=== PATIENT | male | born 1970 | race Two or more races ===

== ENCOUNTER 2025-01-31 13:30 | Emergency (ER) | payer MEDICAID, OTHER ==
[~2025-01-31] VITALS: Ht 172.7 cm; Wt 82.0 kg
--- NOTE | 2025-01-31 14:15 | ED.PDOC ---
Musculoskeletal HPI Comments 54-year-old male with a history of right knee torn meniscus brought in by EMS complaining of right knee pain status post fall. Patient states he was walking when his foot became stuck in a crack in the pavement, causing him to fall and injure his right knee. He states the pain was so severe initially, it made him dizzy, so he continuing to lie on the pavement. On arrival to the ED, he states he is able to weight bear and the pain has improved. He no longer feels dizzy. He denies any other injuries. Chief Complaint: Lower Extremity Time Seen by MD: 13:59 Reviewed Notes: Medications, Allergies Allergies: Coded Allergies: NO KNOWN ALLERGIES (Unverified , 01/31/25) Home Meds Active Scripts Ibuprofen Micronized (Ibuprofen) 600 Mg Tab, 600 MG PO Q6HP PRN, #30 TAB Prn pain. Take with food. Prov:OJ LAM MD 01/31/25 Elastic Bandages & Supports (Jossue Knee Stabilizer) Stabilzr Mis, UNIT XX DAILY, #1 Prov:OJ LAM MD 01/31/25 Information Source: Patient Mode of Arrival: EMS Location: Right Extremity Location: Knee, Leg Timing: Hours Prehospital treatment: None Severity: Moderate Able to Move Extremity: Yes Bear Weight: Limited Pain: Moderate Hand Dominance: Right Mechanism: Twisting Circumstances: Accident Onset of Symptoms: After Trauma Symptoms: Pain DVT Risk Factors: NONE Last Tetanus: UTD Past Medical History Past Medical History (Other): Right knee meniscal injury Surgical History: Denies all surgeries Family History Family History: Reviewed,noncontributory to illness Social History Smoker: Cigarettes Alcohol: Denies ETOH Use Drugs: Denies Drug Use Lives In: Home Constitutional: denies: chills, diaphoresis, fatigue, fever, malaise, sweats, weakness, others EENTM: denies: blurred vision, double vision, ear bleeding, ear discharge, ear drainage, ear pain, ear ringing, eye pain, eye redness, hearing loss, mouth guillermina n, mouth swelling, nasal discharge, nose bleeding, nose congestion, nose pain, photophobia, tearing, throat pain, throat swelling, voice changes, others Respiratory: denies: cough, hemoptysis, orthopnea, SOB at rest, shortness of breath, SOB with excertion, stridor, wheezing, others Cardiovascular: denies: chest pain, dizzy spells, diaphoresis, Dyspnea on exertion, edema, irregular heart beat, left arm pain, lightheadedness, palpitations, PND, syncope, others Gastrointestinal: denies: abdomen distended, abdominal pain, blood streaked bowels, constipated, diarrhea, dysphagia, difficulty swallowing, hematemesis, melena, nausea, poor appetite, poor fluid intake, rectal bleeding, rectal pain, vomiting, others Genitourinary: denies: burning, dysuria, flank pain, frequency, hematuria, incontinence, penile discharge, penile sore, pain, testicle pain, testicle swelling, urgency, others Neurological: denies: dizziness, fainting, headache, left sided numbness, left sided weakness, numbness, paresthesia, pre-existing deficit, right sided numbness, right sided weakness, seizure, speech problems, tingling, tremors, weakness, others Musculoskeletal: reports: muscle pain; denies: back pain, gout, joint pain, joint swelling, muscle stiffness, neck pain, others Integumetry: denies: bruises, change in color, change in hair/nails, dryness, laceration, lesions, lumps, rash, wounds, others Allergic/Immunocompromised: denies: Difficulty Healing, Frequent Infections, Hives, Itching, others Hematologic/Lymphatic: denies: anemia, blood clots, easy bleeding, easy bruising, swollen glands, others Endocrine: denies: excessive hunger, excessive sweating, excessive thirst, excessive urination, flushing, intolerance to cold, intolerance to heat, unexplained weight gain, unexplained weight loss, others Psychiatric: denies: anxiety, bipolar disorder, depression, hopeless, panic disorder, schizophrenia, sleepless, suicidal, others All Other Systems: Reviewed and Negative Physical Exam General Appearance: No Apparent Distress HEENT: Other (Pupils and face symmetric. Moist mucous membranes.) Neck: Full Range of Motion, Normal Inspection Respiratory: Lungs Clear, No Accessory Muscle Use, No Respiratory Distress, Normal Breath Sounds Cardiovascular: No Edema, No JVD, Regular Rate/Rhythm Breast Exam: Deferred Gastrointestinal: Non Tender, Soft Genitalia: Deferred Pelvic: Deferred Rectal: Deferred Extremities: Normal inspection, Normal range of motion, No pedal edema, Other (Right knee infrapatellar soft tissue tenderness. Anterior/posterior drawer test negative. No varus/valgus instability.) Neurologic: Alert (Oriented x4), Normal Affect, Normal Mood, Other (Ambulatory) Cerebellar Function: NOT DONE Reflexes: NOT DONE Skin: Dry, Normal Color, Warm Lymphatic: NOT DONE Was a procedure done? Was a procedure done?: No Differential Diagnosis EXT Differential Diagnosis: Fracture, Sprain, Dislocation, Contusion, Strain, Arthritis, Bursitis X-Ray, Labs, Meds, VS Vital Signs Date Time Temp Pulse Resp B/P (MAP) Pulse Ox O2 Delivery O2 Flow Rate FiO2 01/31/25 14:28 101 18 96 Room Air 01/31/25 14:28 97.7 101 18 166/93 (117) 96 97.7 01/31/25 13:30 98.3 114 16 131/70 96 98.3 Current Medications Medications (Trade) Dose Ordered Sig/Lin Route Start Time Stop Time Status Last Admin Ketorolac Tromethamine (Toradol Injection) 45 mg ONCE ONCE IM 01/31/25 14:15 01/31/25 14:16 DC 01/31/25 14:26 PROCEDURE(s): RKN3 - R KNEE 3V XRAY REASON: trauma ORDER NUMBER(s): [id number], ACCESSION NUMBER(s): [id number] CLINICAL INDICATION: trauma TECHNIQUE: 3 radiographic views of the right knee were obtained. Comparison: None FINDINGS/IMPRESSION: Mild narrowing of the patellofemoral joint and medial compartment of the right knee. No acute fractures or dislocations. HS:Y X-Ray, Labs, Meds, VS Comment 54-year-old male with a history of right knee meniscal injury complaining of right knee pain status post fall Vitals remarkable for initial heart rate 114 Exam remarkable for right knee infrapatellar tenderness to palpation Rhythm strip independently interpreted by me: Sinus tach, rate 114, no ectopy. Right knee x-rays FINDINGS/IMPRESSION: Mild narrowing of the patellofemoral joint and medial compartment of the right knee. No acute fractures or dislocations. The following was ordered for the patient in the ED: Toradol 45 mg IM, which he refused On re-evaluation, exam is unchanged. Patient states he wants to be discharged. He is ambulatory. He appears stable for discharge with close outpatient follow- up with his orthopedist. Rx ibuprofen, knee support Time of 1ST Reevaluation: 14:29 Reevaluation 1ST: Unchanged Patient Education/Counseling: Diagnosis, Treatment, Need For Follow Up Family Education/Counseling: No Family Present Sepsis Sepsis Reasesment Focused Exam Orders: Sepsis Exclusion Note: Patient presents with SIRS criteria, but the SIRS response is attributed to [pain or dehydration ], not a suspected infection. Sepsis bundle is not initiated at this time, due to this reason. Further management will focus on the treatment of the above condition (s). Departure 1 Departure Time of Disposition: 15:00 Impression: Primary Impression: Right knee sprain Qualified Codes: S83.91XA - Sprain of unspecified site of right knee, initial encounter Disposition: HOME / SELF CARE / HOMELESS Condition: Stable Additional Instructions: Your x-rays did not show any broken bones. I have provided the report below. I have prescribed medication for pain. Follow-up with your orthopedist in 1-2 days. [place] [address] Ph: [phone] DIAGNOSTIC IMAGING Diagnostic Imaging Report : [id number] Signed PATIENT: TEX GERBER ACCT: [id number] UNIT: [id number] : 1970 LOC: ER ROOM / BED: / AGE / SEX: 54 / M ADM STATUS: REG ER SERVICE [id number] ORDERING PHYSICIAN: OJ LAM MD PROCEDURE(s): RKN3 - R KNEE 3V XRAY REASON: trauma ORDER NUMBER(s): [id number], ACCESSION NUMBER(s): [id number] CLINICAL INDICATION: trauma TECHNIQUE: 3 radiographic views of the right knee were obtained. Comparison: None FINDINGS/IMPRESSION: Mild narrowing of the patellofemoral joint and medial compartment of the right knee. No acute fractures or dislocations. HS:Y e-Prescriptions Ibuprofen Micronized (Ibuprofen) 600 Mg Tab 600 MG PO Q6HP PRN, #30 TAB Prn pain. Take with food. Prov: OJ LAM MD 01/31/25 Elastic Bandages & Supports (Jossue Knee Stabilizer) Stabilzr Mis UNIT XX DAILY, #1 Prov: OJ LAM MD 01/31/25 Discharged With: Relative Critical Care Note Critical Care Time?: No Stability Stability form required: No Heart Score Heart Score: Heart Score Response (Comments) Value History N/A 0 EKG N/A 0 Age N/A 0 Risk Factors N/A 0 Troponin N/A 0 Total 0 I personally scribed for OJ LAM MD ([email or web address]) on 01/31/25 at 14:15. Electronically submitted by Job West ([email or web address]). OJ LAM MD Jan 31, 2025 14:15
[2025-01-31] MEDS: KETOROLAC TROMETH 60MG/2ML VIAL IM ONE (14:26)
[2025-01-31 14:28] VITALS: BP 166/93; PULSE 101; RESP 18; TEMP 97.7; O2SAT 96
--- NOTE | 2025-01-31 14:38 | DVH ---
CLINICAL INDICATION: trauma TECHNIQUE: 3 radiographic views of the right knee were obtained. Comparison: None FINDINGS/IMPRESSION: Mild narrowing of the patellofemoral joint and medial compartment of the right knee. No acute fractures or dislocations. HS:Y
[2025-01-31] MEDS ORDERED: IBUP1TAB5 PO (15:05)
[2025-01-31] MEDS ORDERED: [UNRECOGNIZED DRUG - CODE] XX (15:05)
== END 2025-01-31 15:26 | disposition home or self-care (01) ==
LOC: ER 13:30 → EDBD 13:30 → ER 15:23
DX: S83.91XA Sprain of unspecified site of right knee, initial encounter (principal); F17.210 Nicotine dependence, cigarettes, uncomplicated; W19.XXXA Unspecified fall, initial encounter; Y93.01 Activity, walking, marching and hiking; Y92.89 Other specified places as the place of occurrence of the external cause; Y99.8 Other external cause status
CPT/HCPCS: 73562; 96372; 99283; J1885